=== PATIENT | male | born 2005 | race Caucasian/White ===

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

== ENCOUNTER 2025-03-24 17:02 | Emergency (ER) | payer MEDICAID | END 2025-03-24 18:29 | disposition left against medical advice (07) | LOC: MW.ED 17:02 | DX: Z53.21 Procedure and treatment not carried out due to patient leaving prior to being seen by health care provider (principal) ==

== ENCOUNTER 2025-03-25 13:38 | Emergency (ER) | payer OTHER, MEDICAID | END 2025-03-25 15:24 | disposition home or self-care (01) | LOC: MW.ED 13:38 | DX: R51.9 Headache, unspecified (principal); F17.200 Nicotine dependence, unspecified, uncomplicated; Z75.3 Unavailability and inaccessibility of health-care facilities; V49.49XA Driver injured in collision with other motor vehicles in traffic accident, initial encounter | CPT/HCPCS: 99283 ==